=== PATIENT | female | born 1965 | race Hispanic/Latino ===

== ENCOUNTER 2017-10-07 15:43 | Outpatient (CLI) | payer OTHER | END 2017-10-07 15:44 | disposition home or self-care (01) | LOC: BICMAMMO 15:43 | PROVIDERS: ATTEND Nurse Practitioner Women's Health | DX: Z12.31 Encounter for screening mammogram for malignant neoplasm of breast (principal) | CPT/HCPCS: 77063; 77067 ==

== ENCOUNTER 2022-11-07 08:25 | Outpatient (CLI) | payer MEDICAID ==
[2022-11-07] MEDS ORDERED: Iopamidol 370 76% 100 ML VIAL ONE (08:46)
== END 2022-11-07 08:26 | disposition home or self-care (01) ==
LOC: CT 08:25
PROVIDERS: ATTEND Internal Medicine Hematology & Oncology
DX: Z51.11 Encounter for antineoplastic chemotherapy (principal); C50.412 Malignant neoplasm of upper-outer quadrant of left female breast; I89.8 Other specified noninfective disorders of lymphatic vessels and lymph nodes; Z79.899 Other long term (current) drug therapy
CPT/HCPCS: 71260; 74177; 78306; 82565; A9503; Q9967

== ENCOUNTER 2022-11-15 14:01 | Outpatient (CLI) | payer MEDICAID | END 2022-11-15 14:02 | disposition home or self-care (01) | LOC: ULT 14:01 | PROVIDERS: ATTEND Internal Medicine Hematology & Oncology | DX: Z51.11 Encounter for antineoplastic chemotherapy (principal); C50.412 Malignant neoplasm of upper-outer quadrant of left female breast; I07.1 Rheumatic tricuspid insufficiency; Z79.899 Other long term (current) drug therapy | CPT/HCPCS: 93306 ==

== ENCOUNTER 2022-11-23 09:59 | Day surgery (SDC) | payer MEDICAID ==
[2022-11-22 12:10] VITALS: BMI 27.4
[2022-11-23] MEDS ORDERED: fentaNYL PF 100 MCG/2 ML SYRINGE ONE (10:43)
[2022-11-23] MEDS ORDERED: CEFAZOLIN 2 GM VIAL ONE (10:58)
[2022-11-23] MEDS ORDERED: Sodium Chloride 0.9% 100 ML ONE (10:58)
[2022-11-23 11:12] LABS: #Monocytes 0.8 thou/uL (0.11-0.59); #Neutrophils 6.6 thou/uL (1.40-6.50); %Basophils 0.3 % (0.0-1.0); %Monocytes 7.7 % (0.0-10.0); %Neutrophils 65.1 % (42.0-75.0); Hematocrit 35.3 % (36.0-47.0); Hemoglobin 11.9 g/dL (12.0-16.0); Mean Corpuscular HGB CONC 33.7 g/dL (32.0-36.0); Mean Corpuscular Hemoglobin 30.7 pg (27.0-31.0); Mean Corpuscular Volume 91.2 fl (78.0-98.0); Mean Platelet Volume 9.8 fL (7.4-10.4); Platelet Count 198 10x3/uL (130-400); RBC Distribution Width 12.6 % (11.5-14.5); Red Blood Cell (RBC) Count 3.87 mill/uL (4.20-5.40); White Blood Cell (WBC) Count 10.1 10x3/uL (4.8-10.8)
[2022-11-23] MEDS ORDERED: PROPOFOL 200 MG/20 ML VIAL ONE (11:20)
[2022-11-23] MEDS ORDERED: PHENYLEPHRINE-NS 100 MCG/ML 10 ML SYRINGE ONE (11:20)
[2022-11-23] MEDS ORDERED: ePHEDrine Sulfate 50 MG/10 ML VIAL ONE (11:20)
[2022-11-23] MEDS ORDERED: Ondansetron PF 4 MG/2 ML Vial ONE (11:20)
[2022-11-23] MEDS ORDERED: Lidocaine 1% PF 5 ML VIAL ONE (11:20)
[2022-11-23] MEDS ORDERED: Dexamethasone 20 MG/5 ML VIAL ONE (11:20)
[2022-11-23] MEDS ORDERED: EPINEPHrine 1 MG/ML AMP ONE (11:23)
[2022-11-23] MEDS ORDERED: Bupivacaine 0.25% HCL 30 ML VIAL ONE (11:23)
[2022-11-23 11:38] LABS: ALT (SGPT) 34 U/L (8-55); AST (SGOT) 23 U/L (5-34); Albumin 3.9 g/dL (3.5-5.0); Alkaline Phosphatase 97 U/L (40-110); Anion Gap 8 mmol/L (10-20); BUN (Urea Nitrogen) 11 mg/dL (9.8-20.1); Bilirubin, Total 0.3 mg/dL (0.2-1.2); Calc. Creatinine Clearance 95 mL/min (70-130); Calcium 9.1 mg/dL (7.8-10.44); Carbon Dioxide 27 mmol/L (22-29); Chloride 107 mmol/L (98-107); Estimated GFR 94; Globulin 2.6 g/dL (2.4-3.5); Glucose 93 mg/dL (70-105); Potassium 4.4 mmol/L (3.5-5.1); Protein, Total 6.5 g/dL (6.0-8.3); Sodium 138 mmol/L (136-145)
[2022-11-23] MEDS ORDERED: HYDROcodone/Acetaminophen 5/325 mg Tablet ONE (13:21)
== END 2022-11-23 13:48 | disposition home or self-care (01) ==
LOC: SDC 09:59
PROVIDERS: ATTEND Surgery
PROC: 0JH60WZ Insertion of Totally Implantable Vascular Access Device into Chest Subcutaneous Tissue and Fascia, Open Approach (ICD-10-PCS; principal; 2022-11-23)
DX: C50.912 Malignant neoplasm of unspecified site of left female breast (principal)
CPT/HCPCS: 71045; 80053; 85025; 93005; 93010; C1788; J0171; J1100; J1642; J2405; J2704; J3490; S0020

== ENCOUNTER 2022-12-04 14:31 | Outpatient (CLI) | payer MEDICAID | END 2022-12-04 14:32 | disposition home or self-care (01) | LOC: RAD 14:31 | PROVIDERS: ATTEND Surgery | DX: D05.12 Intraductal carcinoma in situ of left breast (principal) | CPT/HCPCS: 71046 ==

== ENCOUNTER 2022-12-06 11:06 | Day surgery (SDC) | payer MEDICAID ==
[2022-12-05 13:53] VITALS: BMI 28.7
[2022-12-06] MEDS ORDERED: Heparin 5,000 UNITS/ML VIAL ONE (11:54)
[2022-12-06] MEDS ORDERED: PROPOFOL 200 MG/20 ML VIAL ONE (13:49)
[2022-12-06] MEDS ORDERED: HYDROcodone/Acetaminophen 5/325 mg Tablet ONE (15:32)
== END 2022-12-06 16:00 | disposition home or self-care (01) ==
LOC: SDC 11:06
PROVIDERS: ATTEND Surgery
PROC: 0JPT3XZ Removal of Tunneled Vascular Access Device from Trunk Subcutaneous Tissue and Fascia, Percutaneous Approach (ICD-10-PCS; principal; 2022-12-06)
PROC: 0JH63XZ Insertion of Tunneled Vascular Access Device into Chest Subcutaneous Tissue and Fascia, Percutaneous Approach (ICD-10-PCS; principal; 2022-12-06)
DX: T82.598A Other mechanical complication of other cardiac and vascular devices and implants, initial encounter (principal); D05.12 Intraductal carcinoma in situ of left breast; E55.9 Vitamin D deficiency, unspecified; Y83.1 Surgical operation with implant of artificial internal device as the cause of abnormal reaction of the patient, or of later complication, without mention of misadventure at the time of the procedure
CPT/HCPCS: 71045; C1788; J1642; J1644; J2704

== ENCOUNTER 2023-03-05 08:39 | Outpatient (CLI) | payer OTHER | END 2023-03-05 08:40 | disposition home or self-care (01) | LOC: CT 08:39 | PROVIDERS: ATTEND Internal Medicine Hematology & Oncology | DX: C50.919 Malignant neoplasm of unspecified site of unspecified female breast (principal); R91.1 Solitary pulmonary nodule; J98.09 Other diseases of bronchus, not elsewhere classified | CPT/HCPCS: 71260 ==

== ENCOUNTER 2023-07-02 12:46 | Outpatient (CLI) | payer OTHER | END 2023-07-02 12:47 | disposition home or self-care (01) | LOC: ULT 12:46 | PROVIDERS: ATTEND Internal Medicine Hematology & Oncology | DX: Z51.11 Encounter for antineoplastic chemotherapy (principal); C50.412 Malignant neoplasm of upper-outer quadrant of left female breast | CPT/HCPCS: 93306 ==

== ENCOUNTER 2023-10-08 12:10 | Outpatient (CLI) | payer OTHER | END 2023-10-08 12:11 | disposition home or self-care (01) | LOC: ULT 12:10 | PROVIDERS: ATTEND Internal Medicine Hematology & Oncology | DX: Z51.11 Encounter for antineoplastic chemotherapy (principal); C50.412 Malignant neoplasm of upper-outer quadrant of left female breast | CPT/HCPCS: 93306 ==